=== PATIENT | male | born 1995 ===

== ENCOUNTER → 2019-01-09 | Outpatient (CLI) | payer OTHER ==
--- NOTE | 2019-01-09 09:10 | Diagnostic Imaging Report ---
Clinical indication: Patient with no chest complaints. Positive tuberculosis test. Exam: Chest x-ray PA and lateral views. Comparisons: None. Findings: Lungs/pleura: Lungs are clear. There is no pneumothorax. There is no pleural effusion. Mediastinum: Unremarkable. Pulmonary vasculature: Unremarkable. Heart: Unremarkable. Bones/extrathoracic soft tissue: Unremarkable. Impression: There is no radiographic evidence of acute cardiopulmonary process or radiographic sequelae of TB infection. Dictated by: Dictated on workstation # [id number]
== END ==
LOC: RAD 08:34
PROVIDERS: ATTEND Internal Medicine
DX: Z11.1 Encounter for screening for respiratory tuberculosis (principal); R76.11 Nonspecific reaction to tuberculin skin test without active tuberculosis
CPT/HCPCS: 71046